=== PATIENT | female | born 1980 | race African-American/Black ===

== ENCOUNTER 2016-07-25 04:02 | Emergency (ER) | payer MEDICAID, OTHER ==
[~2016-07-25] VITALS: Ht 167.6 cm; Wt 108.5 kg
[2016-07-25 04:04] VITALS: BP 140/74; PULSE 109; RESP 18; TEMP 98.7; O2SAT 96
[2016-07-25] MEDS ORDERED: HYDR-3533 PO (05:03)
[2016-07-25] MEDS ORDERED: DICL75TA PO (05:03)
--- NOTE | 2016-07-25 05:12 | PD ---
HPI Chief Complaint: Injury Time Seen by Provider: 05:03 Travel History International Travel<30 days: No Contact w/Intl Traveler<30days: No Traveled to known affect area: No History of Present Illness HPI 36-year-old black female presents to emergency department for evaluation of right knee pain after a fall. The patient states that she had a prior knee injury little over year ago. She states that she had slipped going down a set of stairs this evening. She states that she bent her right knee underneath her twisting her knee. Since then she has not been able to bear weight. She feels that her knee is unstable. She denies any injury to her head, neck or back. Pain is severe. Worse with attempting to weight-bear. No alleviating factor. PFSH Past Medical History Narrative Medical Right knee injury Asthma: Yes Diminished Hearing: No Respiratory: Yes (BRONCHITIS) Immunizations Current: No ?: Not LMP: 07/03/16 : 4 Para: 3 Miscarriage: 0 : 0 Past Surgical History Surgical History: No Previous Surgery Social History Alcohol Use: No Tobacco Use: No Substance Use: No Allergies-Medications (Allergen,Severity, Reaction): Coded Allergies: No Known Allergies (Verified , 07/25/16) Reported Meds & Prescriptions Reported Meds & Active Scripts Active No Active Prescriptions or Reported Medications Review of Systems Except as stated in HPI: all other systems reviewed are Neg Physical Exam Narrative GENERAL: Well-developed, well-nourished in no acute distress. Nontoxic appearing. HEAD: Normocephalic, atraumatic. EYES: Pupils equal round and reactive. Extraocular motions intact. No scleral icterus. No injection or drainage. ENT: TMs clear without erythema. The external auditory canals clear. Nose: clear . Posterior pharynx is pink and moist. No tonsillar edema or exudate. Uvula midline. Airway patent. NECK: Trachea midline.Supple, nontender, moves head freely. No central bony tenderness or spasm. CARDIOVASCULAR: Regular rate and rhythm without murmurs, gallops, or rubs. RESPIRATORY: Clear to auscultation. Breath sounds equal bilaterally. No wheezes , rales, or rhonchi. GASTROINTESTINAL: Abdomen soft, non-tender, nondistended. No hepato-splenomegaly , or palpable masses. No guarding. EXTREMITIES: No clubbing, cyanosis, or edema. Examination the right lower extremity reveals a joint effusion in the knee. She has global pain but has more pain on the medial and lateral compartments of the knee. She has gross instability of the lateral collateral ligament. Unable to truly assess the anterior cruciate and posterior cruciate due to her pain and cooperation. No pain in the hip, ankle or foot. The left lower extremity as well as upper extremities are unremarkable for acute bony injury BACK: Nontender without deformity or crepitance. No flank tenderness. Data Data Last Documented VS Vital Signs Date Time Temp Pulse Resp B/P Pulse Ox O2 Delivery O2 Flow Rate FiO2 07/25/16 04:22 20 07/25/16 04:04 98.7 109 140/74 96 Room Air Orders Knee, Complete (4vws) (07/25/16 04:39) Ice/Cold Pack (07/25/16 04:39) Splint Or Brace Apply/Monitor (07/25/16 04:39) Crutches (07/25/16 04:39) Acetamin-Hydrocod 325-5 Mg ([place] 5-325 (07/25/16 05:15) Ibuprofen (Motrin) (07/25/16 05:15) MDM Medical Decision Making Medical Screen Exam Complete: Yes Emergency Medical Condition: Yes Medical Record Reviewed: Yes Interpretation(s) Right knee: Negative for acute fracture. Positive joint effusion Differential Diagnosis MDM: High Differential diagnoses: Fracture, sprain, strain, dislocation, contusion, neurovascular injury Narrative Course Patient's x-ray of her knee is negative for bony injury. She has a joint effusion and clinical findings of a internal derangement. Patient is given Motrin 800 and Lortab 5 mg by mouth. She is placed in a canvas knee splint and given crutches. This is right knee internal derangement Diagnosis Primary Impression: Internal derangement of right knee Patient Instructions: General Instructions, Narcotic given in the ED Departure Forms: Tests/Procedures, Work Release Special Instructions: No work 5 days. Additional Instructions: Rest. Elevation. Ice packs for the next 3 days. Kapil wrap and crutches. No weight-bearing. Medications as directed Follow-up with an orthopedist or your doctor in one week. Return to the ER if any problems Med/Other Pt SpecificInfo: Prescription(s) given Scripts Hydrocodone-Acetaminophen (Lortab)5-325 Mg Tab1 Tab PO Q4H PRN (PAIN) #20 TAB Prov:Dakotah Andrade MD 07/25/[address] 75 Mg Tabdr75 Mg PO BID #30 TAB Prov:Dakotah Andrade MD 07/25/16 Disposition: 01 DISCHARGE HOME Condition: Stable Fred Robison Jul 25, 2016 05:12
[2016-07-25] MEDS ORDERED: IBUPROFEN 800 MG TAB PO ONE (05:15)
[2016-07-25] MEDS ORDERED: ACETAMINOPHEN/HYDROcodone 325 MG/5 MG TAB PO ONE (05:15)
--- NOTE | 2016-07-25 05:21 | RADRPT ---
EXAM DATE/TIME: 07/25/2016 05:00 [facility] COMPARISON: No previous studies available for comparison. INDICATIONS : Pt was walking down stairs and felt pulling pain to right leg from hip to knee. MEDICAL HISTORY : None. SURGICAL HISTORY : None. ENCOUNTER: Initial ACUITY: 1 day PAIN SCORE: 8/10 LOCATION: Right Knee FINDINGS: Four view examination of the right knee demonstrates no evidence of fracture or dislocation. Bony mi neralization is normal. The articular surfaces are intact. The suprapatellar soft tissues have a no rmal configuration. CONCLUSION: 1. There is no evidence of acute fracture. Richard Stiles MD on July 25, 2016 at 5:19 Board Certified Radiologist. This report was verified electronically.
== END 2016-07-25 06:15 | disposition home or self-care (01) ==
LOC: NEPB 04:02
DX: M23.91 Unspecified internal derangement of right knee (principal); J45.909 Unspecified asthma, uncomplicated; W10.8XXA Fall (on) (from) other stairs and steps, initial encounter
CPT/HCPCS: 73564; 99283; E0113; L1830

== ENCOUNTER 2016-12-25 07:19 | Emergency (ER) | payer MEDICAID ==
[~2016-12-25] VITALS: Ht 167.6 cm; Wt 100.0 kg
[~2016-12-25 07:19] MED LIST: DICL75TA PO; HYDR-3533 PO
[2016-12-25 07:20] VITALS: BP 150/84; PULSE 84; RESP 20; TEMP 98.5; O2SAT 98
--- NOTE | 2016-12-25 07:28 | PD ---
HPI . bed bug bite Chief Complaint: Skin Problem Time Seen by Provider: 07:28 Travel History International Travel<30 days: No Contact w/Intl Traveler<30days: No Traveled to known affect area: No History of Present Illness HPI 36 yr old female with asthma here with complaints of bedbug bite. Patient knows she was bitten by a bed bug about a day ago and is now complaining of 2 areas on her left arm that are very itchy and slightly swollen. She decided to come into the emergency department because of itching and she doesn't want the swelling get worse. Patient denies any facial swelling or shortness of breath. She has no other complaints. PFSH Past Medical History Asthma: Yes Diminished Hearing: No Respiratory: Yes (BRONCHITIS) Immunizations Current: No ?: Not LMP: November : 4 Para: 3 Miscarriage: 0 : 0 Social History Alcohol Use: No Tobacco Use: No Substance Use: No Allergies-Medications (Allergen,Severity, Reaction): Coded Allergies: No Known Allergies (Verified , 07/25/16) Reported Meds & Prescriptions Reported Meds & Active Scripts Active Benadryl Itch Stopping Topical (Diphenhydramine Topical) 2 % Gel 1 Applic TOPICAL Q4-6H PRN Pepcid (Famotidine) 20 Mg Tab 20 Mg PO BID 5 Days Lortab (Hydrocodone-Acetaminophen) 5-325 Mg Tab 1 Tab PO Q4H PRN Diclofenac Sodium DR (Diclofenac Sodium) 75 Mg Tabdr 75 Mg PO BID Review of Systems General / Constitutional: No: Fever Eyes: No: Visual changes HENT: No: Headaches Cardiovascular: No: Chest Pain or Discomfort Respiratory: No: Shortness of Breath Gastrointestinal: No: Abdominal Pain Genitourinary: No: Dysuria Musculoskeletal: No: Pain Skin: Positive Itching, Positive Lumps, No Rash Neurologic: No: Weakness Psychiatric: No: Depression Endocrine: No: Polydipsia Hematologic/Lymphatic: No: Easy Bruising Physical Exam Narrative GENERAL: AAO x 3, no acute distress, Well-nourished, well-developed patient. SKIN: Warm and dry. No visible rashes or bruising. 2 excoriations on the left arm with slight swelling, minimally warm to touch no erythema, purulence, induration or fluctuance HEAD: Normocephalic and atraumatic. EYES: No scleral icterus. No injection or drainage. ENT: No nasal drainage noted. Mucous membranes pink. Airway patent. NECK: Supple, trachea midline. No JVD. CARDIOVASCULAR: Regular rate and rhythm without murmurs, gallops, or rubs. RESPIRATORY: Breath sounds equal bilaterally. No accessory muscle use. No rhonchi or rales. GASTROINTESTINAL: Abdomen soft, non-tender, nondistended. EXTREMITIES: No cyanosis or edema. BACK: No obvious deformity. NEURO: CN II-12 intact PSYCH: AAO x 3, normal affect. Data Data Last Documented VS Vital Signs Date Time Temp Pulse Resp B/P Pulse Ox O2 Delivery O2 Flow Rate FiO2 12/25/16 07:20 98.5 84 20 150/84 98 Room Air Orders Methylprednisolone So Succ Inj (Solumedr (12/25/16 07:45) MDM Medical Decision Making Medical Screen Exam Complete: Yes Emergency Medical Condition: Yes Medical Record Reviewed: Yes Differential Diagnosis Insect bite, localized skin reaction, contact dermatitis, less likely shingles, less likely cellulitis Narrative Course 36-year-old female here with what appears to be to insect bites. This is a very mild reaction, I will go ahead and provide her some Solu-Medrol here in the emergency department. I recommend topical Benadryl and Pepcid at home. Discussed with patient. Recommend treatment of bedbugs as this will continue to happen if the bugs are present. Patient verbalized understanding of instructions, questions were answered, and thanked me for their care. I advised them if their condition worsens, please return to the nearest emergency room for further care. Diagnosis Primary Impression: Insect bite Qualified Code: W57.XXXA - Insect bite, initial encounter Additional Impression: Contact dermatitis Qualified Code: L23.89 - Allergic contact dermatitis due to other agents Patient Instructions: General Instructions Additional Instructions: You may experience tenderness of the injection site, this is normal. Please return to emergency department if your symptoms return or worsen. Follow up with your primary care provider. Take medications as prescribed. Med/Other Pt SpecificInfo: Prescription(s) given Scripts Diphenhydramine Topical (Benadryl Itch Stopping Topical)2 % Gel1 Applic TOPICAL Q4-6H PRN (ITCHING AND/OR RASH) #1 TUBE Ref 0 Prov:Mariella Ulloa DO 12/25/16 Famotidine (Pepcid)20 Mg Tab20 Mg PO BID 5 Days Ref 0 Prov:Mariella Ulloa DO 12/25/16 Disposition: 01 DISCHARGE HOME Condition: Stable Kristyn Carney Dec 25, 2016 07:28
[2016-12-25] MEDS ORDERED: FAMO1TAB37 PO (07:32)
[2016-12-25] MEDS ORDERED: DIPH1GEL TOPICAL (07:32)
[2016-12-25] MEDS ORDERED: methylPREDNISolone SOD SUCC 125 MG/2 ML VIAL IM ONE (07:45)
== END 2016-12-25 07:49 | disposition home or self-care (01) ==
LOC: NEPK 07:19
DX: L25.9 Unspecified contact dermatitis, unspecified cause (principal); J45.909 Unspecified asthma, uncomplicated; Z79.899 Other long term (current) drug therapy
CPT/HCPCS: 96372; 99284; J2930